=== PATIENT | male | born 1960 | race Caucasian/White ===

== ENCOUNTER 2019-02-28 17:18 | Emergency (ER) | payer MEDICAID ==
[~2019-02-28] VITALS: Ht 170.2 cm; Wt 71.2 kg
--- NOTE | 2019-02-28 17:18 | NUR ---
"[id number] AND PD FROM HOME, PARANOID, RUNNING AROUNDWITH A BASEBALL BATLIGHTER, AND SPRAY PAIN, LAC ON THE R THUMB -SI/HI PER PT" PT TO BED 14, PT ON MONITOR, VSS, NAD NOTED, PENDING MD DAVENPORT
[2019-02-28] MEDS ORDERED: LORAZEPAM 1 MG TABLET ONE (17:47)
[2019-02-28] MEDS ORDERED: LORAZEPAM 1 MG TABLET PO ONE (18:00)
[2019-02-28 18:02] LABS: BASOPHILS # (AUTO) 0.1 /CMM (0.0-0.2); BASOPHILS % (AUTO) 0.7 % (0.0-2.0); EOSINOPHILS % (AUTO) 0.4 % (0.0-6.0); HEMATOCRIT 51 % (39-51); HEMOGLOBIN 17.3 g/dL (13.5-17.5); LYMPHOCYTES # (AUTO) 0.8 /CMM (0.8-4.8); LYMPHOCYTES % (AUTO) 4.4 % (20.0-44.0); MEAN CORPUSCULAR HGB CONC 34 g/dl (31.0-36.0); MEAN CORPUSCULAR VOLUME 87 fL (80-96); MONOCYTES # (AUTO) 1.6 /CMM (0.1-1.30); MONOCYTES % (AUTO) 9.3 % (2.0-12.0); NEUTROPHILS # (AUTO) 14.9 /CMM (1.8-8.9); NEUTROPHILS % (AUTO) 85.2 % (43.0-81.0); PLATELET COUNT (AUTO) 376 /CMM (150-450); RED BLOOD CELL COUNT(AUTO) 5.83 MIL/uL (4.5-6.0); WHITE BLOOD COUNT (AUTO) 17.5 K/uL (4.3-11.0)
[2019-02-28 18:23] LABS: CALCIUM, SERUM 10.2 mg/dL (8.5-10.1); CARBON DIOXIDE 24 mmol/L (21-32); CHLORIDE 97 mmol/L (98-107); CREATININE 1.6 mg/dL (0.6-1.3); GLUCOSE 92 mg/dL (74-106); POTASSIUM 4.6 mmol/L (3.5-5.1); SODIUM SERUM 137 mmol/L (136-145); UREA NITROGEN, BLOOD 16 mg/dL (7-18)
[2019-02-28 18:29] LABS: ALANINE AMINOTRANSFERASE 45 U/L (12-78); ALBUMIN 4.2 g/dL (3.4-5.0); ALKALINE PHOSPHATASE 145 U/L (46-116); ASPARTATE AMINOTRANSFERASE 65 U/L (15-37); BILIRUBIN,DIRECT 0.3 mg/dL (0.0-0.2); BILIRUBIN,TOTAL 1.5 mg/dL (0.2-1.0); SALICYLATE 2.8 mg/dL (2.8-20.0)
[2019-02-28 18:31] LABS: ALCOHOL, BLOOD < 3 mg/dL (0-0)
--- NOTE | 2019-02-28 19:54 | NUR ---
URINE COLLECTED AND SENT TO LAB
[2019-02-28 19:58] LABS: APPEARANCE,URINE Clear (CLEAR); BILIRUBIN,URINE Negative (NEGATIVE); BLOOD, URINE Trace-intact Ery/uL (NEGATIVE); COLOR,URINE Yellow (YELLOW); KETONES,URINE Trace (NEGATIVE); LEUKOCYTE ESTERASE ,URINE Negative (NEGATIVE); NITRITE, URINE Negative (NEGATIVE); PH,URINE 5.5 (5.0-8.0); PROTEIN,URINE Negative (NEGATIVE); UGLUCOSE Negative (NEGATIVE); UROBILINOGEN,URINE 0.2 EU/dL (0.2)
--- NOTE | 2019-02-28 19:59 | NUR ---
FELIX JADE [phone]
[2019-02-28 20:09] LABS: BACTERIA,URINE None seen /HPF (None Seen); RBC,URINE 0-2 /HPF (0-2); SQUAMOUS EPITHELIAL CELL,UR Rare /HPF (None Seen); URINE AMORPHOUS URATE Few /HPF (None Seen); WBC,URINE 0-2 /HPF (0-3)
--- NOTE | 2019-03-01 01:01 | NUR ---
PT IN BED RESTING, SITTER AT BEDISDE, VSS, NAD NOTED
--- NOTE | 2019-03-01 07:41 | NUR ---
PT OK TO DISCHARGE HOME PER DR PEDRAZA. Patient discharged to home in stable condition. Written and verbal after care instructions given. Patient verbalizes understanding of instruction.Patient is awake and alert to self, day, and place. PT ambulatory with a steady gait
[2019-03-01 07:42] VITALS: BP 124/75
== END 2019-03-01 07:43 | disposition home or self-care (01) ==
LOC: ER 17:23
DX: F19.10 Other psychoactive substance abuse, uncomplicated (principal); S60.311A Abrasion of right thumb, initial encounter; W22.8XXA Striking against or struck by other objects, initial encounter; Y93.89 Activity, other specified; Y92.89 Other specified places as the place of occurrence of the external cause; Y99.8 Other external cause status
CPT/HCPCS: 36415; 80048; 80076; 80305; 80307; 80329; 81001; 84484; 85025; 99283; G0480; 81000-TC